=== PATIENT | female | born 1985 | race Asian ===

== ENCOUNTER 2020-04-15 16:48 | Emergency (ER) | payer SELFPAY ==
[~2020-04-15] VITALS: Ht 162.6 cm; Wt 47.9 kg
[2020-04-15] MEDS ORDERED: SODIUM CHLORIDE FLUSH 10ML SYR IVF ONE (17:30)
--- NOTE | 2020-04-15 17:32 | NUR ---
ASSUMED CARE OF PATIENT. PATIENT REPORTS SHE WAS SEEN AT [facility] [place] [facility] AND WAS TOLD THAT SHE IS HAVING A ECTOPIC AND TO GET TO THE ER. VS STABLE. AT BEDSIDE. PT SEEN BY DR JEAN. PT DENIES PAIN. CALL LIGHT IN PLACE. WILL CONTINUE TO MONITOR.
[2020-04-15 17:34] LABS: BASOPHILS % (AUTO) 1 % (0-1); EOSINOPHILS % (AUTO) 2 % (1-7); LYMPHOCYTES % (AUTO) 15 % (22-44); MEAN CORPUSCULAR HEMOGLOBIN 32.4 pg (27.0-34.8); MEAN CORPUSCULAR HGB CONC 33.4 g/dL (32.4-35.8); MEAN PLATELET VOLUME 8.8 fL (7.4-10.4); MONOCYTES % (AUTO) 6 % (2-9); NEUTROPHILS % (AUTO) 77 % (42-75); PLATELET COUNT 207 x10^3/uL (130-400); RED BLOOD COUNT 3.13 x10^6/uL (3.82-5.3); RED CELL DISTRIBUTION WIDTH 12.8 % (9.6-15.2)
[2020-04-15 17:36] LABS: MD NO
[2020-04-15 17:53] LABS: ALBUMIN 3.7 g/dL (3.4-5.0); ANION GAP 4 mmol/L (5-15); CALCIUM 8.4 mg/dL (8.5-10.1); CHLORIDE 107 mmol/L (98-107); CREATININE 0.61 mg/dL (0.55-1.02)
--- NOTE | 2020-04-15 18:15 | NUR ---
PT IN US
[2020-04-15] MEDS ORDERED: SODIUM CHLORIDE 0.9% 1,000ML IVBOLUS ONE (19:00)
--- NOTE | 2020-04-15 19:09 | NUR ---
pt resting in room. vs stable. at bedside. call light in place. will continue to monitor.
[2020-04-15 19:42] VITALS: BP 106/66
--- NOTE | 2020-04-15 19:42 | NUR ---
DR JEAN IN ROOM UPDATING PATIENT.
--- NOTE | 2020-04-15 20:05 | NUR ---
Successful ambulation trial. Able to ambualte independently, steady gait. Pt denies dizziness/lightheadedness with ambulation.
== END 2020-04-15 20:09 | disposition home or self-care (01) ==
LOC: EDSEX 16:48 → ED 19:45
DX: D64.9 Anemia, unspecified (principal); N93.9 Abnormal uterine and vaginal bleeding, unspecified; R42 Dizziness and giddiness; R53.1 Weakness
CPT/HCPCS: 36415; 76856; 80048; 82040; 84702; 85025; 86850; 86900; 96360; 99284; J7030

== ENCOUNTER 2020-04-29 00:35 | Inpatient (IN) | payer OTHER ==
[~2020-04-29] VITALS: Ht 154.9 cm; Wt 48.1 kg
[2020-04-29] VITALS (9 sets, daily range): BP systolic 83–111; BP diastolic 43–66
--- NOTE | 2020-04-29 00:59 | NUR ---
URINE TUBED TO LAB
--- NOTE | 2020-04-29 01:04 | NUR ---
PT PROVIDED 2 PADS AND CLEAN UNDERGARMENT FROM [employer].
[2020-04-29 01:22] LABS: MICROSCOPIC INDICATED
[2020-04-29 02:12] LABS: BASOPHILS % (AUTO) 1 % (0-1); EOSINOPHILS % (AUTO) 2 % (1-7); LYMPHOCYTES % (AUTO) 16 % (22-44); MEAN CORPUSCULAR HEMOGLOBIN 31.7 pg (27.0-34.8); MEAN CORPUSCULAR HGB CONC 33.4 g/dL (32.4-35.8); MEAN PLATELET VOLUME 8.8 fL (7.4-10.4); MONOCYTES % (AUTO) 5 % (2-9); NEUTROPHILS % (AUTO) 78 % (42-75); PLATELET COUNT 240 x10^3/uL (130-400); RED BLOOD COUNT 2.93 x10^6/uL (3.82-5.3); RED CELL DISTRIBUTION WIDTH 12.7 % (9.6-15.2)
[2020-04-29 02:16] LABS: MD NO
--- NOTE | 2020-04-29 02:17 | NUR ---
PT CHANGED FULLY CLOTHED, DID NOT FEEL COMFORTABLE WITH TRANSVAG US SO LIMITED EXAM. WARM BLANKETS AND WAMRER PROVIDED, IV OPAL BUSBY TALKING WITH . 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
[2020-04-29 02:21] LABS: ALBUMIN 3.6 g/dL (3.4-5.0); ANION GAP 6 mmol/L (5-15); CALCIUM 8.7 mg/dL (8.5-10.1); CHLORIDE 108 mmol/L (98-107); CREATININE 0.83 mg/dL (0.55-1.02)
[2020-04-29] MEDS ORDERED: SODIUM CHLORIDE 0.9% 1,000ML IVBOLUS ONE (02:30)
[2020-04-29] MEDS ORDERED: SODIUM CHLORIDE FLUSH 10ML SYR IVF ONE (02:30)
--- NOTE | 2020-04-29 02:50 | NUR ---
RESTING COMFORTABLY, AT BEDSIDE
[2020-04-29] MEDS ORDERED: CEFTRIAXONE PMX 1GM/50ML 50 ML IV ONE (03:00)
[2020-04-29] MEDS ORDERED: CEFTRIAXONE PMX 1GM/50ML 50 ML ONE (03:16)
[2020-04-29] MEDS ORDERED: LITH5CAP PO (03:41)
--- NOTE | 2020-04-29 03:41 | NUR ---
DR QUAN TO BEDSIDE TO UPSATE ON POC. WAITING FOR OBGYN TO SEE PT
--- NOTE | 2020-04-29 03:43 | NUR ---
[facility] [phone]
--- NOTE | 2020-04-29 03:47 | NUR ---
PT LAST DRINK APPROX 2300 LAST NIGHT WITH 2 CUPS WATER. DENIES ANY OTHER ORAL INTAKE.
--- NOTE | 2020-04-29 04:48 | NUR ---
PT RESTING COMFORTABLY. CALL LIGHT WITHIN REACH. AT BEDSIDE
--- NOTE | 2020-04-29 04:55 | NUR ---
REPORT GIVEN TO ROLL PRESS OPERATOR
[2020-04-29] MEDS ORDERED: METHYLERGONOVINE 0.2 MG/ML IM ONE (05:17)
--- NOTE | 2020-04-29 05:21 | NUR ---
KELLY STOP TIME [id number]
[2020-04-29] MEDS ORDERED: FENTANYL PF 250 MCG/5ML ONE (05:25)
[2020-04-29] MEDS ORDERED: MIDAZOLAM 1 MG/ML, 2ML ONE (05:25)
[2020-04-29] MEDS ORDERED: KETOROLAC 30 MG/1 ML ONE (05:28)
[2020-04-29] MEDS ORDERED: LABETALOL 5MG/ML, 20ML IV PRN (06:00)
[2020-04-29] MEDS ORDERED: HALOPERIDOL 5 MG/ML IV PRN (06:00)
[2020-04-29] MEDS ORDERED: morphine SULFATE 10 MG/ML, 1ML IVPush PRN (06:00)
[2020-04-29] MEDS ORDERED: MEPERIDINE/PF 25MG/0.5ML IVPush PRN (06:00)
[2020-04-29] MEDS ORDERED: PROMETHAZINE 25 MG/ML, 1ML IVPush PRN (06:00)
[2020-04-29] MEDS ORDERED: hydrALAzine 20 MG/ML, 1ML IV PRN (06:00)
[2020-04-29] MEDS ORDERED: ACETAMINOPHEN 325 MG TABLET PO PRN (06:00)
[2020-04-29] MEDS ORDERED: OXYcodone 5 MG/5 ML ORAL.SOL UDC PO PRN (06:00)
[2020-04-29] MEDS ORDERED: HYDROmorphone 1 MG/ML, 1ML INJ IVPush PRN (06:00)
[2020-04-29] MEDS ORDERED: FENTANYL PF 100 MCG/2ML IV PRN (06:00)
[2020-04-29] MEDS ORDERED: OXYTOCIN 10 UNITS/ML, 1ML ONE ×2 (06:09→06:21)
[2020-04-29] MEDS ORDERED: CARBOPROST TROMETHAMINE 250 MCG/ML, 1ML IM ONE (06:17)
[2020-04-29] MEDS ORDERED: ROCURONIUM 10MG/ML,5ML ONE (06:32)
[2020-04-29] MEDS ORDERED: CEFAZOLIN 1,000 MG ONE (06:32)
[2020-04-29] MEDS ORDERED: SUCCINYLCHOLINE 20 MG/ML, 10ML ONE (06:32)
[2020-04-29] MEDS ORDERED: PROPOFOL 10 MG/ML, 20ML ONE (06:32)
[2020-04-29] MEDS ORDERED: ONDANSETRON 2MG/ML, 2ML ONE (06:32)
[2020-04-29] MEDS ORDERED: DEXAMETHASONE 4 MG/ML, 1ML ONE (06:32)
[2020-04-29] MEDS ORDERED: NEOSTIGMINE 1 MG/ML, 10ML ONE (06:32)
[2020-04-29] MEDS ORDERED: GLYCOPYRROLATE 0.2MG/1ML, 5ML ONE (06:32)
[2020-04-29 06:44] LABS: D-DIMER (DIC) 2.23 ug/mlFEU (0.00-0.52); PROTIME 12.1 Seconds (9.6-11.5)
[2020-04-29] MEDS ORDERED: DESMOPRESSIN IVPB ONE (08:00)
[2020-04-29] MEDS ORDERED: SODIUM CHLORIDE 0.9% IVPB ONE (08:00)
[2020-04-29] MEDS ORDERED: ACETAMINOPHEN 650 MG/20.3 ML UDC ONE (10:26)
[2020-04-29] MEDS ORDERED: EPHEDRINE 50 MG/ML, 1ML ONE (11:04)
[2020-04-29 11:40] LABS: BASOPHILS % (AUTO) 0 % (0-1); EOSINOPHILS % (AUTO) 0 % (1-7); LYMPHOCYTES % (AUTO) 7 % (22-44); MEAN CORPUSCULAR HEMOGLOBIN 31.2 pg (27.0-34.8); MEAN CORPUSCULAR HGB CONC 33.2 g/dL (32.4-35.8); MEAN PLATELET VOLUME 8.6 fL (7.4-10.4); MONOCYTES % (AUTO) 1 % (2-9); NEUTROPHILS % (AUTO) 91 % (42-75); PLATELET COUNT 184 x10^3/uL (130-400); RED BLOOD COUNT 3.48 x10^6/uL (3.82-5.3); RED CELL DISTRIBUTION WIDTH 13.6 % (9.6-15.2)
[2020-04-29 11:45] LABS: MD NO
[2020-04-29] MEDS ORDERED: HYDROmorphone 1 MG/ML, 1ML INJ IV PRN (13:30)
[2020-04-29] MEDS ORDERED: ONDANSETRON 2MG/ML, 2ML IV PRN (13:30)
[2020-04-29] MEDS ORDERED: OXYcodone/APAP 5/325MG TABLET PO PRN (15:00)
== END 2020-04-29 17:30 | disposition home or self-care (01) | DRG 770 ==
LOC: ED 02:02 → EDIP 03:51 → 4NE 12:47
PROVIDERS: ADMIT Obstetrics & Gynecology; ATTEND Obstetrics & Gynecology
PROC: 30233N1 Transfusion of Nonautologous Red Blood Cells into Peripheral Vein, Percutaneous Approach (ICD-10-PCS; 2020-04-29)
PROC: 30233M1 Transfusion of Nonautologous Plasma Cryoprecipitate into Peripheral Vein, Percutaneous Approach (ICD-10-PCS; 2020-04-29)
PROC: 10D17ZZ Extraction of Products of Conception, Retained, Via Natural or Artificial Opening (ICD-10-PCS; principal; 2020-04-29 05:30)
DX: O02.1 Missed abortion (principal); F31.9 Bipolar disorder, unspecified; Z20.828 Contact with and (suspected) exposure to other viral communicable diseases
CPT/HCPCS: 36415; 36430; 76856; 80048; 81001; 82040; 84702; 84703; 85014; 85018; 85025; 85049; 85379; 85384; 85610; 85730; 86850; 86900; 86901; 86923; 87086; 87635; 88305; 96361; 96365; G0378; J0690; J0696; J1100; J1885; J2250; J2405; J2597; J2704; J2710; J3010; J0330; J2210; J2590; J7030; P9012; P9016